=== PATIENT | female | born 1940 | race Caucasian/White ===

== ENCOUNTER 2016-11-02 10:19 | Outpatient (CLI) | payer MEDICARE, OTHER ==
[2016-11-02 11:28] LABS: ALT (SGPT) 26 U/L (0-55); AST (SGOT) 27 U/L (5-34); Alkaline Phosphatase 55 U/L (40-150); Anion Gap 12 mmol/L (10-20); BUN (Urea Nitrogen) 16 mg/dL (9.8-20.1); Bilirubin, Total 0.6 mg/dL (0.2-1.2); Calc. Creatinine Clearance 0 mL/min (70-130); Calcium 9.8 mg/dL (7.8-10.44); Carbon Dioxide 28 mmol/L (23-31); Chloride 108 mmol/L (98-107); Estimated GFR-MDRD 53; LDL Cholesterol, Calculated 61 mg/dL; Protein, Total 7.2 g/dL (5.8-8.1)
== END 2016-11-02 10:20 | disposition home or self-care (01) ==
LOC: BURLAB 10:19
PROVIDERS: ATTEND Internal Medicine Cardiovascular Disease
DX: E78.00 Pure hypercholesterolemia, unspecified (principal)
CPT/HCPCS: 36415; 80053; 80061

== ENCOUNTER 2016-11-09 10:02 | Outpatient (CLI) | payer MEDICARE, OTHER ==
[2016-11-09 10:48] LABS: #Basophils 0.1 thou/uL (0.0-0.2); #Eosinphils 0.2 thou/uL (0.0-0.7); #Monocytes 0.6 thou/uL (0.11-0.59); %Basophils 0.9 % (0.0-1.0); %Eosinophils 3.4 % (0.0-10.0); %Monocytes 10.6 % (0.0-10.0); Hematocrit 44.9 % (36.0-47.0); Mean Platelet Volume 6.9 fL (7.4-10.4); Red Blood Cell (RBC) Count 4.73 mill/uL (4.20-5.40); White Blood Cell (WBC) Count 5.9 thou/uL (4.8-10.8)
[2016-11-09 11:03] LABS: ALT (SGPT) 23 U/L (0-55); AST (SGOT) 23 U/L (5-34); Alkaline Phosphatase 56 U/L (40-150); Anion Gap 14 mmol/L (10-20); BUN (Urea Nitrogen) 14 mg/dL (9.8-20.1); Bilirubin, Total 0.6 mg/dL (0.2-1.2); Calc. Creatinine Clearance 0 mL/min (70-130); Calcium 9.5 mg/dL (7.8-10.44); Carbon Dioxide 26 mmol/L (23-31); Chloride 108 mmol/L (98-107); Estimated GFR-MDRD 64; Globulin 3.1 g/dL (2.4-3.5); LDL Cholesterol, Calculated 59 mg/dL; Protein, Total 7.2 g/dL (5.8-8.1)
== END 2016-11-09 10:03 ==
LOC: HPCALD 10:02
PROVIDERS: ATTEND Family Medicine
DX: E78.00 Pure hypercholesterolemia, unspecified (principal); F40.01 Agoraphobia with panic disorder
CPT/HCPCS: 36415; 80053; 80061; 84443; 85025

== ENCOUNTER 2016-11-10 09:14 | Outpatient (CLI) | payer MEDICARE, OTHER | END 2016-11-10 09:15 | disposition home or self-care (01) | LOC: HPCALD 09:14 | PROVIDERS: ATTEND Family Medicine | DX: E03.9 Hypothyroidism, unspecified (principal) | CPT/HCPCS: 36415; 84439; 84443 ==

== ENCOUNTER 2016-11-12 10:28 | Outpatient (CLI) | payer MEDICARE, OTHER ==
[2016-11-12 12:21] LABS: Methadone Not Detected (NotDetected); Methamphetamine Not Detected (NotDetected)
== END 2016-11-12 10:29 | disposition home or self-care (01) ==
LOC: HPCALD 10:28
PROVIDERS: ATTEND Family Medicine
DX: M54.5 Low back pain (principal); G89.29 Other chronic pain
CPT/HCPCS: 80306

== ENCOUNTER 2016-12-29 16:11 | Outpatient (CLI) | payer MEDICARE, OTHER | END 2016-12-29 16:12 | disposition home or self-care (01) | LOC: HPCALD 16:11 | PROVIDERS: ATTEND Family Medicine | DX: E03.9 Hypothyroidism, unspecified (principal) | CPT/HCPCS: 84443 ==

== ENCOUNTER 2017-06-01 10:39 | Outpatient (CLI) | payer MEDICARE, OTHER ==
[2017-06-01 11:42] LABS: ALT (SGPT) 34 U/L (8-55); AST (SGOT) 37 U/L (5-34); Albumin 4.3 g/dL (3.4-4.8); Alkaline Phosphatase 54 U/L (40-150); Anion Gap 15 mmol/L (10-20); BUN (Urea Nitrogen) 13 mg/dL (9.8-20.1); Bilirubin, Total 0.7 mg/dL (0.2-1.2); Calc. Creatinine Clearance 0 mL/min (70-130); Calcium 9.9 mg/dL (7.8-10.44); Carbon Dioxide 25 mmol/L (23-31); Chloride 106 mmol/L (98-107); Cholesterol 153 mg/dl (< 200 Desired); Estimated GFR-MDRD 58; Globulin 3.3 g/dL (2.4-3.5); Glucose 99 mg/dL (83-110); HDL Cholesterol 51 mg/dL (>60 Neg Risk); LDL Cholesterol, Calculated 69 mg/dL; Potassium 4.3 mmol/L (3.5-5.1); Protein, Total 7.6 g/dL (6.0-8.3); Sodium 142 mmol/L (136-145); Triglycerides 164 mg/dL (Less than 150)
== END 2017-06-01 10:40 | disposition home or self-care (01) ==
LOC: BURLAB 10:39
PROVIDERS: ATTEND Internal Medicine Cardiovascular Disease
DX: E78.00 Pure hypercholesterolemia, unspecified (principal)
CPT/HCPCS: 36415; 80053; 80061

== ENCOUNTER 2018-02-02 15:40 | Outpatient (CLI) | payer MEDICARE ==
--- NOTE | 2018-02-02 18:16 | RAD ---
STERNUM 02/02/18 Two views are submitted. No gross sternal fracture, bony destruction or other sternal findings of con cern were encountered. Median sternotomy sutures are present from prior surgery. IMPRESSION: No sternal abnormality noted. POS: HOME
--- NOTE | 2018-02-02 18:20 | RAD ---
THORACIC SPINE 02/02/18 Three views show a very slight compression of a vertebra near the thoracolumbar junction. There is so me downsloping of the end plates. I would need a lumbar spine film to assess the exact vertebral numb er. There is no displacement. Anterior height is lost by no more than 10 to 20%. Mild degenerative ch anges are seen elsewhere. Some calcification is present in the aorta. An additional finding was disc space narrowing at C6-C7. IMPRESSION: Very mild anterior compression with wedging of one of the vertebra near the thoracolumbar junction. POS: HOME
== END 2018-02-02 15:41 | disposition home or self-care (01) ==
LOC: BURRAD 15:40
PROVIDERS: ATTEND Family Medicine
DX: G89.18 Other acute postprocedural pain (principal); M48.8X5 Other specified spondylopathies, thoracolumbar region
CPT/HCPCS: 71120; 72072

== ENCOUNTER 2023-01-18 14:17 | Outpatient (CLI) | payer OTHER | END 2023-01-18 14:18 | disposition home or self-care (01) | LOC: BURRAD 14:17 | PROVIDERS: ATTEND Family Medicine | DX: R07.81 Pleurodynia (principal) ==